=== PATIENT | male | born 1980 | race Caucasian/White ===

== ENCOUNTER 2019-01-26 08:34 | Day surgery (SDC) | payer OTHER ==
[2019-01-26 08:46] LABS: Absolute Lymphocytes (CBC) 1.7 K/uL (0.7-4.9); Basophils % 0.8 % (0-1.3); Hematocrit 45.6 % (39.6-49.0); Lymphocytes % 21.9 % (15.3-44.8); MPV 10.3 fL (7.6-11.3); Monocytes % 9.5 % (3.3-12.3); RBC Red Blood Cell Count 5.32 M/uL (4.33-5.43)
[2019-01-26 09:04] LABS: Bilirubin Direct 0.1 mg/dL (0-0.2); Bilirubin Total 0.5 mg/dL (0.2-1.0); Protein, Total 7.6 g/dL (6.4-8.2)
[2019-01-26] MEDS ORDERED: Ringers Lactate 1,000 ML IV ONE (09:36)
--- OUTSIDE RECORDS SUMMARY | 2019-01-26 09:36 | XMS REPORT | Clinical Summary ---
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 nonoperative treatment program Family History Medical History Relation Name Comments Aneurysm Father Hypertension Father Hypertension Mother Relation Name Status Comments Father Mother Alive Social History Tobacco Use Types Packs/Day Years Used Date Unknown If Ever Smoked Smokeless Tobacco: Current User Alcohol Use Drinks/Week oz/Week Comments Yes 1-2 Standard drinks or equivalent 0.6 - 1.2 Sex Assigned at Date Recorded Not on file Job Start Date Occupation Industry Not on file Not on file Not on file Travel History Travel Start Travel End No recent travel history available. Last Filed Vital Signs Not on file Plan of Treatment Health Maintenance Due Date Last Done Comments INFLUENZA VACCINE 03/03/2019 Results Not on fileafter 01/25/2018 Advance Directives Patient has advance care planning documents on file. For more information, please contact:Juan Jose [address]ock[address] [place] [address]
[2019-01-26] MEDS ORDERED: CEFOXITIN/SWI 1gm 1 GM/10 ML SYR ONE (11:07)
[2019-01-26] MEDS ORDERED: BUPIVACAINE 0.5% PF 10 ML VIAL ONE (11:33)
[2019-01-26] MEDS ORDERED: FENTANYL CITR 100 MCG/2 ML ONE ×2 (11:47→12:43)
[2019-01-26] MEDS ORDERED: PROPOFOL 200 MG/20 ML VIAL IV ONE (11:47)
[2019-01-26] MEDS ORDERED: MIDAZOLAM HCL 2 MG/2 ML INJ ONE (11:47)
[2019-01-26] MEDS ORDERED: LIDOCAINE 2% MPF 5 ML VIAL ONE (11:47)
[2019-01-26] MEDS ORDERED: ROCURONIUM 50 MG/5 ML VIAL IV ONE (11:48)
[2019-01-26] MEDS ORDERED: ONDANSETRON 4 MG/2 ML VIAL ONE ×2 (11:48→13:51)
--- NOTE | 2019-01-26 12:45 | P.BOP ---
Preoperative diagnosis: symptomatic cholelithiasis, acute cholecystitis, incarcerated umbilical her Postoperative diagnosis: same Primary procedure: 1. Laparoscopic cholecystectomy Secondary procedure: 2. open repair of incarcerated umbilical hernia Oncology Radiation Physician: SAL LUU (AGRICULTURE ENGINEER) Estimated blood loss: <10cc Specimen: gb, hernia sac Findings: as above Complications: None Transferred to: Recovery Room Condition: Good
[2019-01-26] MEDS ORDERED: NEOSTIGMINE 1 MG/ML -10 ML VIAL ONE (13:03)
[2019-01-26] MEDS ORDERED: GLYCOPYRROLATE 0.2 MG/ML SYR ONE (13:03)
[2019-01-26] MEDS ORDERED: Mastisol Adhesive Liq ONE (13:04)
[2019-01-26] MEDS: MEPERIDINE HCL 50 MG/ML AMP ONE ×2 (13:24→13:29)
[2019-01-26] MEDS: HYDROMORPHONE HCL 2 MG/ML inj ONE ×4 (13:35→13:52)
--- NOTE | 2019-01-26 13:35 | OP ---
Date of Procedure: 01/26/2019 Surgeon: Sebastian Delgado MD Labour Market Economist: SHELLIE Churchill. Preoperative Diagnoses: Symptomatic cholelithiasis, acute cholecystitis, incarcerated umbilical shannan ia, morbid obesity. Postoperative Diagnoses: Symptomatic cholelithiasis, acute cholecystitis, incarcerated umbilical her rosaura, morbid obesity. Procedures: 1.Laparoscopic cholecystectomy. 2.Open repair of incarcerated umbilical hernia. Estimated Blood Loss: Less than 10 cc. Specimen: Gallbladder, hernia sac. Indications: This is a case of a 38-year-old patient who comes to us with acute abdominal pain epiga stric right upper quadrant radiating to the back, diagnosed with above diagnosis. Fully explained th e benefits, alternatives, and risks of laparoscopic, possible open, cholecystectomy and repair of inc arcerated umbilical hernia, which include but not limited to infection, bleeding, damage to adjacent structures, anesthesia complication, choledocholithiasis, bile leak, pancreatitis, recurrence of shannan ia, UT, even . He also understands this might not relieve any symptoms. He might need more samira n one surgical intervention. He was also explained the importance of losing weight. He signed a con sent. Description Of Procedure: The patient was brought to the operating room, placed in supine position. Anesthesia was induced without complication. Abdominal area was prepped and draped in usual sterile fashion. Marcaine 0.5% was injected for local anesthetic, followed by sharp incision of the skin in the infraumbilical region. Immediately, we noticed a hernia with incarcerated omentum. Hernia sac was opened. Incarcerated omentum had to be partially removed. Hernia sac was removed. Fascia was t hen cleaned and opened and then we have to open the fascia a little bit more to allow Amor trocars to come in. Vicryl #1 previously was placed inside the fascia. Amor trocar was carefully introduc ed. Pneumoperitoneum was obtained. Immediately, we noticed a dense inflamed distended gallbladder s o we placed three 5 mm trocar in the right upper quadrant under direct visualization and introduced a n Endo needle under direct visualization to deflate the gallbladder partially. The needle was remove d from the gallbladder under direct visualization and a grasper was placed in the fundus of the gallb ladder. Another grasper was placed in the infundibulum retracting the gallbladder in the inferolater al fashion exposing triangle of Calot and obtaining critical view of safety. Cystic duct and cystic artery were clearly isolated, freed circumferentially and a connection between those and the gallblad yamilex were clearly identified. I proceeded to ligate those by using at least 3 clips proximal, 1 clip distal, ligation in middle. Same was done with the cystic artery. No bile leak. No bleeding. The gallbladder was removed from liver using Bovie cauterizer and removed from abdominal cavity using an EndoCatch through the umbilical incision. The area was inspected once again. No bile leak. No blee ding. Clips were intact. Gallbladder fossa with no bleeding. At that moment, I proceeded to remove the trocars under direct vision. Deflated the pneumoperitoneum. Closed the fascia with #1 Vicryl, irrigated subcu tissue, closed that with 3-0 chromic and skin in a subcuticular fashion with 3-0 zinc plater katie and Steri-Strips on top. Sponge count and instrument counts were correct. The patient tolerated the procedure well. The patient is awake to Recovery in stable condition. XIANG/ЕЛЕНА Voice ID: [id number] Report ID: [id number]
--- NOTE | 2019-01-26 13:41 | DS ---
Diagnoses: Symptomatic cholelithiasis, acute cholecystitis, incarcerated umbilical hernia, morbid ob esity. Procedure: Laparoscopic cholecystectomy and open repair of incarcerated umbilical hernia. Disposition: Home. Activity: As tolerated. No heavy lifting. Followup: Follow up in my office in 1 week. Call for appointment [phone]. Keep area dry for 48 ho urs, then may shower. Keep Steri-Strips intact. Medications: Include Tylenol No.4 q.4 hours p.r.n. pain. The patient has already taken Cipro. XIANG/ЕЛЕНА Voice ID: [id number] Report ID: [id number]
[2019-01-26] MEDS ORDERED: HYDROCODONE/APAP 10/325 TAB ONE (14:48)
== END 2019-01-26 15:30 | disposition home or self-care (01) ==
LOC: OR 08:34
PROVIDERS: ATTEND Surgery
PROC: 0FT44ZZ Resection of Gallbladder, Percutaneous Endoscopic Approach (ICD-10-PCS; principal; 2019-01-26 12:00)
PROC: 0WQF0ZZ Repair Abdominal Wall, Open Approach (ICD-10-PCS; 2019-01-26 12:00)
DX: K80.10 Calculus of gallbladder with chronic cholecystitis without obstruction (principal); K42.0 Umbilical hernia with obstruction, without gangrene; E66.01 Morbid (severe) obesity due to excess calories; I10 Essential (primary) hypertension; Z79.899 Other long term (current) drug therapy
CPT/HCPCS: 36415; 80048; 80076; 82150; 83690; 85025; 88302; 88304; J1170; J2175; J2250; J2405; J2704; J2710; J3010

== ENCOUNTER 2022-05-26 20:34 | Emergency (ER) | payer OTHER ==
--- NOTE | 2022-05-26 21:07 | RAD REPORT ---
EXAM DESCRIPTION: Rodney Single View05/26/2022 8:59 pm CLINICAL HISTORY: Chest pain COMPARISON: 2009 FINDINGS: The lungs appear clear of acute infiltrate. The heart is normal size IMPRESSION: No acute abnormalities displayed
[2022-05-26 21:31] LABS: Absolute Lymphocytes (CBC) 2.2 K/uL (0.7-4.9); Hematocrit 47.6 % (39.6-49.0); Lymphocytes % 23.6 % (15.3-44.8); MCV 86.2 fL (80-100); RBC Red Blood Cell Count 5.52 M/uL (4.33-5.43)
[2022-05-26 21:40] LABS: Protime INR 0.73
[2022-05-26 21:54] LABS: ALT/SGPT 69 U/L (12-78); Albumin 3.7 g/dL (3.4-5.0); Alkaline Phosphatase 93 U/L (45-117); BUN Blood Urea Nitrogen 17 mg/dL (7-18); Bicarbonate 25 mmol/L (21-32); Bilirubin Total 0.7 mg/dL (0.2-1.0); Glomerular Filtration Rate 83 ml/min (=/>90); Glucose Level 189 mg/dL (74-106); Protein, Total 7.4 g/dL (6.4-8.2); Sodium Level 137 mmol/L (136-145); Troponin High Sensitivity 7.5 pg/mL (<58.9)
[2022-05-26] MEDS ORDERED: METOPROLOL XL 50 MG TAB PO ONE (21:54)
[2022-05-26 21:55] LABS: AST/SGOT 26 U/L (15-37); Bilirubin Direct < 0.1 mg/dL (0-0.2); Potassium 3.5 mmol/L (3.5-5.1)
--- NOTE | 2022-05-26 22:13 | ER ---
Nurse's Notes [facility] Name: Edward Reynolds Age: 42 yrs Sex: Male : 1980 Arrival Date: 05/26/2022 Time: 20:42 Bed 25 Private MD: Diagnosis: Essential (primary) hypertension;Obesity, unspecified Presentation: 05/26 20:42 Chief complaint: Spouse and/or significant other states: "We were at dinner and all of as6 a sudden he just got really weak and lethargic. His blood pressure was high at home so he took an extra blood pressure pill and now we're worried it's too low" pt reports chest pain and generalized weakness. Coronavirus screen: At this time, the client does not indicate any symptoms associated with coronavirus-19. Ebola Screen: No symptoms or risks identified at this time. Initial Sepsis Screen: Does the patient meet any 2 criteria? No. Patient's initial sepsis screen is negative. Does the patient have a suspected source of infection? No. Patient's initial sepsis screen is negative. Risk Assessment: Do you want to hurt yourself or someone else? Patient reports no desire to harm self or others. Onset of symptoms was May 26, 2022. 20:42 Method Of Arrival: Wheelchair as6 20:42 Acuity: KISHA 3 as6 Historical: - Allergies: 20:44 No Known Allergies; as6 - PMHx: 20:44 Hypertensive disorder; as6 - PSHx: 20:44 Cholecystectomy; ankle; as6 - Immunization history:: Client reports having NOT received the Covid vaccine. - Social history:: Smoking status: Patient denies any tobacco usage or history of. - Family history:: not pertinent. Screenin:32 Abuse screen: Denies threats or abuse. Denies injuries from another. Nutritional tp1 screening: No deficits noted. Tuberculosis screening: No symptoms or risk factors identified. Fall Risk None identified. Assessment: 21:05 General: Appears in no apparent distress. comfortable, Behavior is calm, cooperative. tp1 Pain: Complains of pain in chest Pain does not radiate. Pain currently is 5 out of 10 on a pain scale. Quality of pain is described as aching, Is continuous. Neuro: Level of Consciousness is awake, alert, obeys commands, Oriented to person, place, time, situation, Reports weakness Denies blurred vision dizziness, headache. Cardiovascular: Capillary refill < 3 seconds in bilateral fingers Patient's skin is warm and dry. Rhythm is sinus rhythm. Respiratory: Airway is patent Respiratory effort is even, unlabored. GI: Abdomen is round non-distended, Patient currently denies diarrhea, nausea, vomiting. : No signs and/or symptoms were reported regarding the genitourinary system. EENT: No signs and/or symptoms were reported regarding the EENT system. Derm: Skin is pink, warm \\T\\ dry. Musculoskeletal: Circulation, motion, and sensation intact. 22:33 Reassessment: Patient is alert, oriented x 3, equal unlabored respirations, skin bb warm/dry/pink. pt verbalized understanding of and agrees to plan of care discharge instructions given pt ambulated with steady gait to exit accompanied by family Patient states feeling better. Vital Signs: 20:42 BP 165 / 110; Pulse 84; Resp 18 S; Temp 97.7(O); Pulse Ox 100% on R/A; Weight 142.88 kg as6 (R); Height 6 ft. 1 in. (185.42 cm) (R); Pain 7/10; 21:33 BP 140 / 90; Pulse 77; Resp 16; Pulse Ox 100% on R/A; tp1 22:34 BP 128 / 87; Pulse 69; Resp 16 S; Pulse Ox 95% on R/A; bb 20:42 Body Mass Index 41.56 (142.88 kg, 185.42 cm) as6 ED Course: 20:42 Patient arrived in ED. as6 20:44 Triage completed. as6 20:45 Arm band placed on. as6 21:00 XRAY Chest (1 view) In Process Unspecified. EDMS 21:04 Caren Gracia, RN is Primary Nurse. tp1 21:05 Patient has correct armband on for positive identification. Bed in low position. Call tp1 light in reach. Adult w/ patient. Client placed on continuous cardiac and pulse oximetry monitoring. NIBP monitoring applied. 21:07 Dru Webb MD is Attending Physician. joshua 21:19 Inserted saline lock: 20 gauge in left antecubital area, using aseptic technique. Blood tp1 collected. 21:30 EKG done. tp1 22:13 Joseluis Singh MD is Referral Physician. joshua 22:35 No provider procedures requiring assistance completed. Patient did not have IV access bb during this emergency room visit. Administered Medications: 21:20 Not Given (Duplicate Order): Norvasc (amlodipine) 10 mg PO once joshua 21:20 Not Given (Duplicate Order): cloNIDine 0.1 mg PO once joshua 21:20 Not Given (Duplicate Order): Lisinopril 10 mg PO once joshua 21:41 CANCELLED (Duplicate Order): Bystolic 5 mg PO once joshua 21:51 Not Given (Duplicate Order): Bystolic 10 mg PO once joshua 21:56 Drug: ToPROL XL (metoprolol SUCCINATE XL) 50 mg Route: PO; em6 Medication: 22:36 VIS not applicable for this client. bb Outcome: 22:13 Discharge ordered by . joshua 22:36 Discharged to home ambulatory, with family. bb 22:36 Condition: stable 22:36 Discharge instructions given to patient, Instructed on discharge instructions, follow up and referral plans. medication usage, Demonstrated understanding of instructions, follow-up care, medications, Prescriptions given X 2. 22:36 Patient left the ED. bb Signatures: Dispatcher [employer] EDMS Dru Webb MD MD cha Ballard, Brenda, RN RN bb Erickson Cook, RN RN as6 Caren Gracia RN RN tp1 Sara Delgado RN RN em6
--- NOTE | 2022-05-26 22:14 | EDPHYS ---
Physician Documentation [facility] Name: Edward Reynolds Age: 42 yrs Sex: Male : 1980 Arrival Date: 05/26/2022 Time: 20:42 Bed 25 Private MD: ED Physician Dru Webb HPI: 05/26 21:42 This 42 yrs old Male presents to ER via Wheelchair with complaints of Blood joshua Pressure Problem. 21:42 htn. The patient presents with dizziness. Onset: The symptoms/episode began/occurred joshua just prior to arrival. Context: occurred at home. Modifying factors: The symptoms are alleviated by nothing, the symptoms are aggravated by nothing. Associated signs and symptoms: The patient has no apparent associated signs or symptoms. Severity of symptoms: At their worst the symptoms were mild in the emergency department the symptoms have improved mildly. Patient's baseline: Neuro: alert and fully oriented. Historical: - Allergies: 20:44 No Known Allergies; as6 - PMHx: 20:44 Hypertensive disorder; as6 - PSHx: 20:44 Cholecystectomy; ankle; as6 - Immunization history:: Client reports having NOT received the Covid vaccine. - Social history:: Smoking status: Patient denies any tobacco usage or history of. - Family history:: not pertinent. ROS: 21:42 Constitutional: Negative for fever, chills, and weight loss, Eyes: Negative for injury, joshua pain, redness, and discharge, ENT: Negative for injury, pain, and discharge, Neck: Negative for injury, pain, and swelling, Cardiovascular: Negative for chest pain, palpitations, and edema, Respiratory: Negative for shortness of breath, cough, wheezing, and pleuritic chest pain, Abdomen/GI: Negative for abdominal pain, nausea, vomiting, diarrhea, and constipation, Back: Negative for injury and pain, : Negative for injury, bleeding, discharge, and swelling, MS/Extremity: Negative for injury and deformity, Skin: Negative for injury, rash, and discoloration, Psych: Negative for depression, anxiety, suicide ideation, homicidal ideation, and hallucinations, Allergy/Immunology: Negative for hives, rash, and allergies, Endocrine: Negative for neck swelling, polydipsia, polyuria, polyphagia, and marked weight changes, Hematologic/Lymphatic: Negative for swollen nodes, abnormal bleeding, and unusual bruising. 21:42 Neuro: Positive for dizziness. Exam: 21:42 Constitutional: This is a well developed, well nourished patient who is awake, alert, joshua and in no acute distress. Head/Face: Normocephalic, atraumatic. Eyes: Pupils equal round and reactive to light, extra-ocular motions intact. Lids and lashes normal. Conjunctiva and sclera are non-icteric and not injected. Cornea within normal limits. Periorbital areas with no swelling, redness, or edema. ENT: Nares patent. No nasal discharge, no septal abnormalities noted. Tympanic membranes are normal and external auditory canals are clear. Oropharynx with no redness, swelling, or masses, exudates, or evidence of obstruction, uvula midline. Mucous membranes moist. Neck: Trachea midline, no thyromegaly or masses palpated, and no cervical lymphadenopathy. Supple, full range of motion without nuchal rigidity, or vertebral point tenderness. No Meningismus. Chest/axilla: Normal chest wall appearance and motion. Nontender with no deformity. No lesions are appreciated. Cardiovascular: Regular rate and rhythm with a normal S1 and S2. No gallops, murmurs, or rubs. Normal PMI, no JVD. No pulse deficits. Respiratory: Lungs have equal breath sounds bilaterally, clear to auscultation and percussion. No rales, rhonchi or wheezes noted. No increased work of breathing, no retractions or nasal flaring. Abdomen/GI: Soft, non-tender, with normal bowel sounds. No distension or tympany. No guarding or rebound. No evidence of tenderness throughout. Back: No spinal tenderness. No costovertebral tenderness. Full range of motion. Skin: Warm, dry with normal turgor. Normal color with no rashes, no lesions, and no evidence of cellulitis. MS/ Extremity: Pulses equal, no cyanosis. Neurovascular intact. Full, normal range of motion. Neuro: Awake and alert, GCS 15, oriented to person, place, time, and situation. Cranial nerves II-XII grossly intact. Motor strength 5/5 in all extremities. Sensory grossly intact. Cerebellar exam normal. Normal gait. Psych: Awake, alert, with orientation to person, place and time. Behavior, mood, and affect are within normal limits. 21:42 ECG was reviewed by the Attending Physician. Vital Signs: 20:42 BP 165 / 110; Pulse 84; Resp 18 S; Temp 97.7(O); Pulse Ox 100% on R/A; Weight 142.88 kg as6 (R); Height 6 ft. 1 in. (185.42 cm) (R); Pain 02/09; 21:33 BP 140 / 90; Pulse 77; Resp 16; Pulse Ox 100% on R/A; tp1 22:34 BP 128 / 87; Pulse 69; Resp 16 S; Pulse Ox 95% on R/A; bb 20:42 Body Mass Index 41.56 (142.88 kg, 185.42 cm) as6 MDM: 21:07 Patient medically screened. joshua 05/26 20:45 Order name: Basic Metabolic Panel; Complete Time: 22:12 as05/26 20:45 Order name: CBC with Diff; Complete Time: 21:40 as05/26 20:45 Order name: LFT's; Complete Time: 22:12 as05/26 20:45 Order name: PT-INR; Complete Time: 22:12 as05/26 20:45 Order name: Troponin HS; Complete Time: 22:12 as05/26 20:45 Order name: XRAY Chest (1 view); Complete Time: 21:40 05/26 20:45 Order name: EKG; Complete Time: 20:46 05/26 20:45 Order name: Cardiac monitoring; Complete Time: 20:45 as05/26 20:45 Order name: EKG - Nurse/Tech; Complete Time: 21:29 05/26 20:45 Order name: IV Saline Lock; Complete Time: 21:18 05/26 20:45 Order name: Labs collected and sent; Complete Time: 21:19 as05/26 20:45 Order name: O2 Per Protocol; Complete Time: 20:45 05/26 20:45 Order name: O2 Sat Monitoring; Complete Time: 20:45 as EC:42 Rate is 72 beats/min. Rhythm is regular. QRS [place] is Normal. [place] interval is normal. QRS joshua interval is normal. QT interval is normal. No Q waves. T waves are Normal. No ST changes noted. Clinical impression: Normal ECG and No evidence of ischemia. Interpreted by me. Reviewed by me. Administered Medications: 21:20 Not Given (Duplicate Order): Norvasc (amlodipine) 10 mg PO once joshua 21:20 Not Given (Duplicate Order): cloNIDine 0.1 mg PO once joshua 21:20 Not Given (Duplicate Order): Lisinopril 10 mg PO once joshua 21:41 CANCELLED (Duplicate Order): Bystolic 5 mg PO once joshua 21:51 Not Given (Duplicate Order): Bystolic 10 mg PO once joshua 21:56 Drug: ToPROL XL (metoprolol SUCCINATE XL) 50 mg Route: PO; em6 Disposition Summary: 05/26/22 22:13 Discharge Ordered Location: Home joshua Problem: new joshua Symptoms: have improved joshua Condition: Stable joshua Diagnosis - Essential (primary) hypertension joshua - Obesity, unspecified joshua Followup: joshua - With: Private Physician - When: 2 - 3 days - Reason: Recheck today's complaints, Continuance of care, Re-evaluation by your physician Followup: joshua - With: - When: 2 - 3 days - Reason: Recheck today's complaints, Continuance of care, Re-evaluation by your physician Discharge Instructions: - Hypertension, Adult joshua - Obesity, Adult joshua - Hypertension, Adult, [id number] joshua - How to Take Your Blood Pressure, Zqyv-af-Dlah joshua - Aspirin and Your Heart joshua - Managing Your Hypertension joshua - Discharge Summary Sheet cp Forms: - Medication Reconciliation Form joshua - Thank You Letter joshua - Antibiotic Education joshua - Prescription Opioid Use joshua Prescriptions: - Bystolic 5 mg Oral tablet - take 1 tablet by ORAL route once daily; 20 tablet; Refills: 0, Product cp Selection Permitted - Norvasc 10 mg Oral Tablet - take 1 tablet by ORAL route once daily; 30 tablet; Refills: 0, Product joshua Selection Permitted Signatures: Dispatcher [employer] Dru Bhatti MD MD cha Slawson, Ashby, RN RN as6 Sara Delgado RN RN em6 Corrections: (The following items were deleted from the chart) 21:41 21:41 Bystolic 5 mg PO once ordered. joshua joshua
[2022-05-26 23:44] VITALS: TEMP 97.7
[2022-05-26 23:46] VITALS: BP 128/87; O2SAT 95
--- NOTE | 2022-05-27 13:57 | EKG ---
Test Date: 2022-05-26 Test Time: 21:23:49 Industrial Electrical Engineer: ERASMO MEASUREMENT RESULTS: Intervals: Rate: 72 GA: 160 QRSD: 102 QT: 420 QTc: 459 [place]: P: 61 GA: 160 QRS: 61 T: 39 INTERPRETIVE STATEMENTS: Normal sinus rhythm Normal ECG Compared to ECG 04/10/2010 12:09:14 Sinus bradycardia no longer present Sinus arrhythmia no longer present Electronically Signed On 05-27-22 13:56:56 CDT by Owen Adhikari
== END 2022-05-26 22:36 | disposition home or self-care (01) ==
LOC: ER 20:34
DX: I10 Essential (primary) hypertension (principal); E66.9 Obesity, unspecified; Z68.41 Body mass index [BMI] 40.0-44.9, adult
CPT/HCPCS: 36415; 71045; 80048; 80076; 84484; 85025; 85610; 93005; 99284